=== PATIENT | female | born 2000 | race African-American/Black ===

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

== ENCOUNTER 2020-05-01 10:41 | Emergency (ER) | payer OTHER ==
[2020-05-01 10:57] VITALS: BP 145/92; PULSE 114; TEMP 98; BMI 17.2
--- NOTE | 2020-05-01 10:57 | PDOC ---
Rapid Medical Evaluation Time Seen by Provider: 05/01/20 10:53 Medical Evaluation: Allergies Allergy/AdvReac Type Severity Reaction Status Date / Time No Known Allergies Allergy Verified 05/01/20 10:52 05/01/20 10:54 CC: abd pain with vomiting x 3 weeks with intermittent diarrhea, smokes marijuana and cigarettes. menses last week Exam: vss, llq tenderness, not cachetic, seen by hospital security officer dr ch and recommended celiac testing but did not go as of yet and pain worsened plan: cbc, comp, ma, urine Discharge Disposition - Diagnosis Abdominal pain - Referrals - Patient Instructions - Post Discharge Activity
[2020-05-01] MEDS ORDERED: SODIUM CHLORIDE 0.9% 500 ML INFUS.BAG IV ONE (11:07)
--- NOTE | 2020-05-01 11:11 | PDOC ---
History of Present Illness - General Chief Complaint: Pain, Acute Stated Complaint: STOMACH PAIN Time Seen by Provider: 05/01/20 10:53 History Source: Patient Exam Limitations: No Limitations - History of Present Illness Initial Comments: 05/01/20 11:10 Patient is a 19-year-old female who presents to the ED with 3 weeks of lower abdominal pain. She states no matter what she eats she vomits it back up or she has diarrhea. She has only been drinking a little bit of water for the last 3 weeks. She was seen by her [employer] doctor, Dr. Anthony, and was advised that her symptoms may be secondary to celiac disease. She was sent for blood work which the patient states she never had done. She denies any fevers or chills. The patient states she has been losing weight without trying. She does smoke cigarettes and marijuana. The patient does admit to being a cutter but states t hat she does not want to hurt herself or anyone else. She does feel safe at home. Past History - Medical History Allergies/Adverse Reactions: Allergies Allergy/AdvReac Type Severity Reaction Status Date / Time No Known Allergies Allergy Verified 05/01/20 10:52 Home Medications: Ambulatory Orders Amoxicillin - [Amoxicillin 500mg Capsule -] 500 mg PO TID 10 Days #30 capsule 11/27/19 COPD: No - Immunization History Immunization Up to Date: No - Psycho-Social/Smoking History Smoking History: Current every day smoker Have you smoked in the past 12 months: No Information on smoking cessation initiated: Yes - Substance Abuse Hx (Audit-C & DAST Scrn) How often the patient has a drink containing alcohol: 2-4 times / month Number of drinks the patient has on a typical day: 1 or 2 How often the patient has six or more drinks on one occasion: Weekly Score: In Men: 4 or > Positive; In Women: 3 or > Positive: 5 Screen Result (Pos requires Nsg. Audit-10AR): Positive In the last yr the pt used illegal drug/Rx for NonMed reason: Yes Score: Yes response is considered Positive: 1 Screen Result (Positive result requires Nsg. DAST-10): Positive Review of Systems - Review of Systems Comments:: 05/01/20 11:12 - Review of Systems Able to Perform ROS?: Yes Constitutional: No: Fever, Chills, Loss of Appetite, Night Sweats, Weakness HEENTM: No: Eye Pain, Vision changes, Ear Pain, Throat Pain, Throat Swelling, Mouth Pain, Difficulty Swallowing Respiratory: No: Cough, Shortness of Breath, Wheezing, Sputum Production Cardiac (ROS): No: Chest Pain, Chest Tightness, Palpitations, Irregular Heart Beat, Edema ABD/GI: Positive: Nausea, Vomiting, Abdominal Pain, Diarrhea : No Dysuria, No Hematuria, No Frequency, No Urgency, No Vaginal Discharge/Pain Musculoskeletal: No: Muscle Pain, Back Pain, Joint Pain, Muscle Weakness, Neck Pain Integumentary: No: Lesions, Rash Neurological: No: Headache, Numbness, Tingling, Weakness, Speech Difficulties *Physical Exam - Vital Signs Last Vital Signs Temp Pulse Resp BP Pulse Ox 98.0 F 114 H 18 145/92 100 05/01/20 10:52 05/01/20 10:52 05/01/20 10:52 05/01/20 10:52 05/01/20 10:52 - Physical Exam 05/01/20 11:13 - Physical Exam General Appearance: Nourished, Appropriately Dressed, No Distress; pt is thin but not cachectic HEENT: EOMI, Normal Voice, Hearing Grossly Normal, slightly dry oral mucosa Neck: Supple, No Lymphadenopathy (R), No Lymphadenopathy (L), No Rigidity, No Decreased range of motion Respiratory/Chest: Lungs Clear, Normal Breath Sounds. No Respiratory Distress, No Accessory Muscle Use Cardiovascular: Regular Rhythm, Regular Rate, S1, S2 Gastrointestinal/Abdominal: Normal Bowel Sounds, Soft. No Rebound, No Rigidity; epigastric, left upper and left lower quadrant tenderness to palpation. No suprapubic tenderness to palpation. Positive voluntary guarding. No tympany. No CVA tenderness bilaterally. Musculoskeletal: Normal Inspection. No Decreased Range of Motion Extremity: Normal Capillary Refill, Normal Inspection Integumentary: Normal Color, Dry. No Rash Neurologic: repair tech II-XII NML intact, Fully Oriented, Alert, Normal Mood/Affect, Normal Response ED Treatment Course - LABORATORY CBC & Chemistry Diagram: 05/01/20 11:20 05/01/20 11:20 - RADIOLOGY Radiology Studies Ordered: Category Date Time Status ABDOMEN & PELVIS CT WITH CONTR [CT] Stat CT Scan 05/01/20 11:09 Ordered Medical Decision Making - Medical Decision Making 05/01/20 11:14 Assessment: Patient is a 19-year-old female with epigastric, left upper and left lower quadrant abdominal tenderness associated with vomiting and diarrhea for the last 3 weeks. Plan: -Labs ordered by RME -1 L of NS bolus ordered -Patient is not currently nauseated, will hold on antiemetics -Will reassess 05/01/20 14:17 Pt is sitting comfortably awaiting CT scan. She has gotten 1L of NS and is feeling well. 05/01/20 15:20 Patient states she no longer wants wait for the CT scan and wants to sign out AGAINST MEDICAL ADVICE. I have made the patient aware that her work-up is not complete and it is still unknown what the cause of her nausea, vomiting and abdominal pain are from. The patient states she understands this and still wants to leave the emergency department and does not want to wait. Patient requested to leave AMA. Patient is determined to be of sound mind and reasoning. The patient fully understands the care they are refusing and the risks associated with leaving before complete medical evaluation as explained by the medical team. The patient understands the risks of possible worsening symptoms, permanent disability and even . The patient has been provided with a discharge summary, return precautions, and the reassurance that the Emergency Department will resume workup if the patient changes their mind. Immediate primary care follow up has been urged. Discharge - Discharge Information Problems reviewed: Yes Clinical Impression/Diagnosis: Left upper quadrant abdominal pain, Epigastric abdominal pain Abdominal pain Qualifiers: Abdominal location: left lower quadrant Qualified Code(s): R10.32 - Left lower quadrant pain Condition: Stable Disposition: AGAINST MEDICAL ADVICE - Follow up/Referral Referrals: Beto Mclean MD [Staff Physician] - Call tomorrow - Patient Discharge Instructions Patient Printed Discharge Instructions: DI for Abdominal Pain-Adult Additional Instructions: You have chosen to sign out AGAINST MEDICAL ADVICE prior to your work-up being complete. You have not had your CT scan. You must follow-up with your primary doctor for further evaluation and treatment. A referral to a GI doctor has been given to you and you should call as soon as possible for follow-up. Get plenty of rest and drink plenty of fluids. Return to the emergency department for high fevers, shaking chills, profuse vomiting, severe diarrhea, blood in your stool or vomitus, or any other worsening symptoms. - Post Discharge Activity
[2020-05-01 12:12] LABS: BASO % 0.3 % (0-2.0); EOS % 0.5 % (0-4.5); HEMATOCRIT 44.4 % (32.4-45.2); HEMOGLOBIN 14.4 GM/dL (10.7-15.3); LYMPH % 28.9 % (8-40); MCH 26.8 pg (25.7-33.7); MCHC 32.4 g/dl (32.0-36.0); MEAN CELL VOLUME 82.5 fl (80-96); MEAN PLT VOLUME 8.3 fl (7.5-11.1); MONO % 12.3 % (3.8-10.2); PLATELET COUNT 291 K/MM3 (134-434); RBC 5.39 M/mm3 (3.60-5.2); RDW 13.6 % (11.6-15.6); WHITE BLOOD COUNT 5.4 K/mm3 (4.0-10.0)
[2020-05-01 13:05] LABS: ALBUMIN 4.9 g/dl (3.4-5.0); BILIRUBIN,TOTAL 0.6 mg/dL (0.2-1); BLOOD UREA NITROGEN 9.3 mg/dL (7-18); CREATININE 0.9 mg/dL (0.55-1.3); MAGNESIUM 2.2 mg/dL (1.8-2.4); POTASSIUM 3.6 mmol/L (3.5-5.1); TOT PROT 8.7 g/dl (6.4-8.2)
[2020-05-01 14:15] LABS: HCG,QUALITATIVE URINE Negative
[2020-05-01 14:20] LABS: PH,URINE 6.5 (5.0-8.0); URINE APPEARANCE CLEAR; URINE BILIRUBIN NEGATIVE (NEGATIVE); URINE COLOR YELLOW; URINE GLUCOSE (UA) NEGATIVE (NEGATIVE); URINE KETONE 2+ (NEGATIVE); URINE LEUK ESTERASE NEGATIVE (NEGATIVE); URINE NITRITE NEGATIVE (NEGATIVE); URINE PROTEIN NEGATIVE (NEGATIVE)
== END 2020-05-01 16:35 | disposition left against medical advice (07) ==
LOC: JER 10:41
DX: R10.12 Left upper quadrant pain (principal); R10.13 Epigastric pain; R10.32 Left lower quadrant pain
CPT/HCPCS: 36415; 74177-TC; 80053; 81003; 83735; 84703; 85025; 87086; 99285-25; Q9967